=== PATIENT | male | born 1975 ===

== ENCOUNTER 2018-05-22 09:53 | Emergency (ER) | payer SELFPAY ==
[2018-05-22 09:59] VITALS: BMI 22.8
[2018-05-22 10:03] VITALS: O2SAT 99
[2018-05-22 12:02] LABS: BASO % 0.1 % (0.0-2.0); EOS # 0.2 K/uL (0.0-0.7); EOS % 1.9 % (0.0-4.0); HEMOGLOBIN 15.8 g/dL (12.0-18.0); LYMPH # 1.4 K/uL (1.0-4.3); LYMPH % 16.4 % (20.0-40.0); MEAN CELL VOLUME 84.5 fL (80.0-94.0); MEAN CORPUSCULAR HEMOGLOBIN 29.5 pg (27.0-31.0); MEAN CORPUSCULAR HGB CONC 34.9 g/dL (33.0-37.0); MEAN PLATELET VOLUME 7.3 fL (7.2-11.7); MONO # 0.8 K/uL (0.0-0.8); MONO % 9.3 % (0.0-10.0); NEUT # 6.3 K/uL (1.8-7.0); NEUT % 72.3 % (50.0-75.0); NRBC % 0.1 % (0.0-2.0); RBC 5.35 Mil/uL (4.40-5.90); RED CELL DISTRIBUTION WIDTH 13.5 % (11.5-14.5); WHITE BLOOD COUNT 8.8 K/uL (4.8-10.8)
--- NOTE | 2018-05-22 12:03 | RAD ---
HISTORY: cough/fever COMPARISON: None available TECHNIQUE: Chest PA and lateral FINDINGS: LUNGS: No focal consolidation. Please note that chest x-ray has limited sensitivity for the detection of pulmonary masses. PLEURA: No significant pleural effusion identified. No definite pneumothorax . CARDIOVASCULAR: Heart size appears within normal limits. No atherosclerotic calcification present. OSSEOUS STRUCTURES: No acute osseous abnormality identified. VISUALIZED UPPER ABDOMEN: Unremarkable. OTHER FINDINGS: None. IMPRESSION: No focal consolidation.
[2018-05-22 12:17] LABS: URINE BILIRUBIN NEGATIVE (NEGATIVE); URINE BLOOD NEGATIVE (NEGATIVE); URINE CLARITY Clear (Clear); URINE COLOR Yellow (YELLOW); URINE GLUCOSE (UA) NORMAL (Normal); URINE LEUKOCYTE ESTERASE NEG Leu/uL (Negative); URINE PROTEIN NEGATIVE (NEGATIVE); URINE UROBILINOGEN NORMAL mg/dL (0.2-1.0)
[2018-05-22 12:23] LABS: BLOOD UREA NITROGEN 23 mg/dL (9-20); CALCIUM 8.8 mg/dl (8.6-10.4); GFR NON-AFRICAN AMERICAN > 60
[2018-05-22 12:26] VITALS: BP 113/70; PULSE 70; RESP 16; TEMP 98.2
[2018-05-22] MEDS ORDERED: Potassium Chloride 20 mEq ER Tab PO STA (12:28)
--- NOTE | 2018-05-22 12:31 | C.PDOC ---
History Of Present Illness 42 years old male with PMHx of diabetes presents to ED for complaints of abdominal pain, fever, chills, cough, bodyaches, diarrhea, and vomiting that began 2 sherman ago. Patient reports positive sick contact at home. Patient also reports last episode of vomiting was 6AM today. Denies any other physical complaints. PMD; * No PMD Time Seen by Provider: 05/22/18 11:12 Chief Complaint (Nursing): Abdominal Pain History Per: Patient History/Exam Limitations: no limitations Onset/Duration Of Symptoms: Days (2) Current Symptoms Are (Timing): Still Present Location Of Pain/Discomfort: Diffuse Radiation Of Pain To:: None Associated Symptoms: Fever, Chills, Nausea, Vomiting, Diarrhea. denies: Urinary Symptoms Exacerbating Factors: None Alleviating Factors: None Last Bowel Movement: Today Recent travel outside of the [place]: No Past Medical History Reviewed: Historical Data, Nursing Documentation, Vital Signs Vital Signs: Last Vital Signs Temp 98.2 F 05/22/18 12:26 Pulse 70 05/22/18 12:26 Resp 16 05/22/18 12:26 BP 113/70 05/22/18 12:26 Pulse Ox 99 05/22/18 12:26 - Medical History PMH: HTN Surgical History: No Surg Hx Family History: States: No Known Family Hx - Social History Hx Alcohol Use: No Hx Substance Use: No - Immunization History Hx Tetanus Toxoid Vaccination: No Hx Influenza Vaccination: No Hx Pneumococcal Vaccination: No Review Of Systems Except As Marked, All Systems Reviewed And Found Negative. Constitutional: Positive for: Fever, Chills, Malaise Respiratory: Positive for: Cough Gastrointestinal: Positive for: Nausea, Vomiting, Abdominal Pain Physical Exam - Physical Exam Appears: Well, Non-toxic, No Acute Distress Skin: Normal Color, Warm, Dry, No Rash Head: Atraumatic, Normacephalic Eye(s): bilateral: Normal Inspection, PERRL, EOMI Oral Mucosa: Moist Neck: Normal ROM, Supple Chest: Symmetrical, No Tenderness Cardiovascular: Rhythm Regular, No Murmur Respiratory: Normal Breath Sounds, No Rales, No Rhonchi, No Wheezing Gastrointestinal/Abdominal: Bowel Sounds (Active ), Soft, No Tenderness, No Guarding, No Rebound Extremity: Normal ROM Extremity: Bilateral: Atraumatic, Normal Color And Temperature, Normal ROM Pulses: Left Radial: Normal, Right Radial: Normal Neurological/Psych: Oriented x3, Normal Speech, Normal Motor, Normal Sensation Gait: Steady ED Course And Treatment - Laboratory Results Result Diagrams: 05/22/18 11:57 05/22/18 11:57 Lab Results: Urine Color Yellow (YELLOW) 05/22/18 12:07 Urine Clarity Clear (Clear) 05/22/18 12:07 Urine pH 5.0 (5.0-8.0) 05/22/18 12:07 Ur Specific [place] 1.021 (1.003-1.030) 05/22/18 12:07 Urine Protein Negative mg/dL (NEGATIVE) 05/22/18 12:07 Urine Glucose (UA) Normal mg/dL (Normal) 05/22/18 12:07 Urine Ketones Negative mg/dL (NEGATIVE) 05/22/18 12:07 Urine Blood Negative (NEGATIVE) 05/22/18 12:07 Urine Nitrate Negative (NEGATIVE) 05/22/18 12:07 Urine Bilirubin Negative (NEGATIVE) 05/22/18 12:07 Urine Urobilinogen Normal mg/dL (0.2-1.0) 05/22/18 12:07 Ur Leukocyte Esterase Neg Aidee/uL (Negative) 05/22/18 12:07 Urine WBC (Auto) 1 /hpf (0-5) 05/22/18 12:07 Urine RBC (Auto) 1 /hpf (0-3) 05/22/18 12:07 O2 Sat by Pulse Oximetry: 99 (RA) Pulse Ox Interpretation: Normal - Other Rad CXR X-Ray: Viewed By Me, Read By Radiologist Interpretation: HISTORY: cough/fever. COMPARISON: None available. TECHNIQUE: Chest PA and lateral. FINDINGS: LUNGS: No focal consolidation. Please note that chest x-ray has limited sensitivity for the detection of pulmonary masses. PLEURA: No significant pleural effusion identified. No definite pneumothorax . CARDIOVASCULAR: Heart size appears within normal limits. No atherosclerotic calcification present. OSSEOUS STRUCTURES: No acute osseous abnormality identified. VISUALIZED UPPER ABDOMEN: Unremarkable. OTHER FINDINGS: None. IMPRESSION: No focal consolidation. Medical Decision Making Medical Decision Making: Plan: * Potassium chloride * Ara flu * Blood work * CXR * Urinalysis Progress: Patient was positive for flu and is being treated with tamiflu. Patient denies any other complaints at this time. Patient is stable for discharge and will be discharged. REturn if symptoms worsen or persist. Disposition Counseled Patient/Family Regarding: Studies Performed, Diagnosis, Need For Followup - Disposition Referrals: [facility] [Outside] [facility] [Outside] Disposition: HOME/ ROUTINE Disposition Time: 12:29 Condition: STABLE Additional Instructions: JANEEN SANTAMARIA, thank you for letting us take care of you today. Your provider was Gabby Montes MD and you were treated for DIABETIC/STOMACH PAIN. The emergency medical care you received today was directed at your acute symptoms. If you were prescribed any medication, please fill it and take as directed. It may take several days for your symptoms to resolve. Return to the Emergency Department if your symptoms worsen, do not improve, or if you have any other problems. Please contact your doctor or call one of the physicians/clinics you have been referred to that are listed on the Patient Visit Information form that is included in your discharge packet. Bring any paperwork you were given at discharge with you along with any medications you are taking to your follow up visit. Our treatment cannot replace ongoing medical care by a primary care provider outside of the emergency department. Thank you for allowing the [facility] team to be part of your care today. Prescriptions: Oseltamivir Cap [Tamiflu] 75 mg PO BID #9 cap Instructions: Viral Syndrome (DC) Forms: [employer] ([place]), Gen Discharge Inst Sen[place]e, [facility] (Senegalese), General Discharge Instructions Print Language: FRENCH - POA Present On Arrival: None - Clinical Impression Clinical Impression: Viral syndrome - Scribe Statement The provider has reviewed the documentation as recorded by the Ann Meier All medical record entries made by the Scribe were at my direction and personally dictated by me. I have reviewed the chart and agree that the record accurately reflects my personal performance of the history, physical exam, medical decision making, and the department course for this patient. I have also personally directed, reviewed, and agree with the discharge instructions and disposition.
[2018-05-22] MEDS ORDERED: Potassium Chloride 20 mEq ER Tab PO ONE (12:41)
== END 2018-05-22 12:45 | disposition home or self-care (01) ==
LOC: C.ER 09:53
DX: B34.9 Viral infection, unspecified (principal); E87.6 Hypokalemia